=== PATIENT | male | born 1965 | race Caucasian/White ===

== ENCOUNTER 2017-01-21 08:58 | Emergency (ER) | payer BC ==
[2017-01-21 09:20] VITALS: BP 136/82; PULSE 74; RESP 16; TEMP 97.7; O2SAT 93
--- NOTE | 2017-01-21 09:54 | UCPHY ---
H & P Time Seen by Provider: 01/21/17 09:25 Patient Type: New HPI/ROS: This patient inverted his right ankle 5 days prior to arrival while on vacation in [place]. He reports that he did hear a pop but he was still able to bear weight afterwards. The discomfort is 3/10 at baseline 5/10 with walking. He notes some lateral swelling associated with this injury. He denies any other associated injuries. He has partial relief from ibuprofen no other exacerbating or alleviating factors. ROS: No recent fevers or chills. No other musculoskeletal complaints. No numbness or tingling. 5 point ROS is otherwise negative. Past Medical/Surgical History: Otherwise healthy Smoking Status: Never smoked Physical Exam: Physical Exam Vital signs are normal. General: No acute distress HEENT: Atraumatic. Eyes: Pupils equal and react to light. Extraocular motions are intact. Lungs: No respiratory distress. Cardiac: Brisk capillary refill is intact throughout. Pulses are 2+ and symmetric in the affected extremity. Skin: No rash or pallor. Extremities: Atraumatic normal except for the right ankle Right ankle exam: Patient has mild swelling and tenderness anterior and inferior to the lateral malleolus on the right side with no ecchymosis. No 5th metatarsal tenderness no posterior/Achilles tenderness no medial ankle tenderness or swelling. Anterior drawer-minimal laxity that is comparable to the on injured ankle. Neuro: Alert and oriented x3 with no sensorimotor deficits. Initial differential diagnosis: Sprain versus fracture Constitutional: Initial Vital Signs Temperature (C) 36.5 C 01/21/17 09:17 Heart Rate 74 01/21/17 09:17 Respiratory Rate 16 01/21/17 09:17 Blood Pressure 136/82 H 01/21/17 09:17 O2 Sat (%) 93 01/21/17 09:17 O2 Delivery Mode Room Air Allergies/Adverse Reactions: No Known Allergies Allergy (Unverified 01/21/17 09:14) Home Medications: Medication Instructions Recorded NK [No Known Home Meds] 01/21/17 MDM/Departure - MDM Diagnostics: Ankle x-ray: Negative for acute fracture by my interpretation. ED Course/Re-evaluation: Patient is placed in a stirrup splint. I counseled him regarding ankle rehab exercises. Findings are consistent with a grade 1 ankle sprain of the anterior talofibular ligament - Depart Disposition: Home, Routine, Self-Care Clinical Impression: Ankle sprain Qualifiers: Encounter type: initial encounter Involved ligament of ankle: other ligament Laterality: right Qualified Code(s): S93.491A - Sprain of other ligament of right ankle, initial encounter Condition: Good Instructions: Ankle Sprain (ED) Additional Instructions: Diagnosis: Ankle sprain Plan: Ibuprofen-400 600 mg per 6 hours as needed for pain and swelling. Ice 20 minutes at a time 3 times a day or more for the next few days. Stirrup splint whenever you're up and about until your symptoms resolve. Tylenol in addition if needed for pain. Use crutches initially until it no longer hurts to bear weight. Then start your ankle rehabilitation exercises to include "the alphabet", gentle ankle stretches in the 4 directions, and then manual resistance strengthening exercises in the 4 directions daily for the next several months. Call the orthopedic M.D. listed below to arrange a followup appointment if you' re not improving with the treatment plan over the next week or so. Referrals: NONE *PRIMARY CARE P,. [Primary Care Provider] - As per Instructions De Conteh MD [Medical Doctor] - As per Instructions - PQRS PQRS Measurement: NA
== END 2017-01-21 10:19 | disposition home or self-care (01) ==
LOC: CED 08:58
PROC: 2W3QX1Z Immobilization of Right Lower Leg using Splint (ICD-10-PCS; principal; 2017-01-21)
DX: S93.491A Sprain of other ligament of right ankle, initial encounter (principal); X58.XXXA Exposure to other specified factors, initial encounter
CPT/HCPCS: 73610-PO; G0463-PO; L4350